=== PATIENT | female | born 1945 | race Caucasian/White ===

== ENCOUNTER → 2017-06-12 | Outpatient (CLI) | payer MEDICARE, BC | END | disposition home or self-care (01) | LOC: LAB 15:19 | PROVIDERS: ATTEND Internal Medicine Hematology & Oncology | DX: Z51.11 Encounter for antineoplastic chemotherapy (principal); C90.02 Multiple myeloma in relapse; C79.51 Secondary malignant neoplasm of bone | CPT/HCPCS: 36415; 86850; 86900 ==

== ENCOUNTER → 2019-04-04 | Outpatient (CLI) | payer MEDICARE, BC | END | disposition home or self-care (01) | LOC: PETCFH 10:05 | PROVIDERS: ATTEND Internal Medicine Hematology & Oncology | DX: C90.02 Multiple myeloma in relapse (principal); D73.89 Other diseases of spleen | CPT/HCPCS: 78815; A9552 ==

== ENCOUNTER → 2019-07-24 | Outpatient (CLI) | payer MEDICARE, BC ==
[~2019-07-24] MED LIST: REGADENOSON 0.4 MG/5 ML SYRINGE ONE
== END | disposition home or self-care (01) ==
LOC: CFH 07:12
PROVIDERS: ATTEND Internal Medicine Cardiovascular Disease
DX: I08.1 Rheumatic disorders of both mitral and tricuspid valves (principal); I48.91 Unspecified atrial fibrillation; I10 Essential (primary) hypertension
CPT/HCPCS: 78452; 93017; 93306; A9502; J2785

== ENCOUNTER 2020-04-07 10:56 | Day surgery (SDC) | payer MEDICARE, BC ==
[~2020-04-07] VITALS: Ht 160 cm; Wt 78.6 kg
[2020-04-07 11:41] VITALS: BP 172/74
[2020-04-07] MEDS ORDERED: CEFAZOLIN PMX 1GM/50ML 50 ML ONE (11:47)
[2020-04-07] MEDS ORDERED: CITRACAL PO (11:59)
[2020-04-07] MEDS ORDERED: FAMO-79 PO (11:59)
[2020-04-07] MEDS ORDERED: [UNRECOGNIZED DRUG - OTHER] PO (11:59)
[2020-04-07] MEDS ORDERED: DIPH25CA61 PO (11:59)
[2020-04-07] MEDS ORDERED: CETI10CA PO (11:59)
[2020-04-07] MEDS ORDERED: BEPO10DR3 EACHEYE (11:59)
[2020-04-07] MEDS ORDERED: ASPI-1027 PO (11:59)
[2020-04-07] MEDS ORDERED: ACYC-114 PO (11:59)
[2020-04-07] MEDS ORDERED: DEXAMETHASONE PO (11:59)
[2020-04-07] MEDS ORDERED: SITA100T PO (11:59)
[2020-04-07] MEDS ORDERED: GABA800T5 PO (11:59)
[2020-04-07] MEDS ORDERED: VIT B12 PO (11:59)
[2020-04-07] MEDS ORDERED: PROBIOTIC PO (11:59)
[2020-04-07] MEDS ORDERED: ZOMETA (11:59)
[2020-04-07] MEDS ORDERED: OMEP-110 PO (11:59)
[2020-04-07] MEDS ORDERED: ATOR20TA37 PO (11:59)
[2020-04-07] MEDS ORDERED: NINLARO PO (11:59)
[2020-04-07] MEDS ORDERED: ACET325T14 PO (11:59)
[2020-04-07] MEDS ORDERED: POMA2CAP PO (11:59)
[2020-04-07] MEDS ORDERED: SODIUM CHLORIDE 0.9% 1,000 ML IV SCH (12:00)
[2020-04-07] MEDS ORDERED: CEFAZOLIN PMX 1GM/50ML 50 ML IV ONE (12:00)
[2020-04-07] MEDS ORDERED: LIDOCAINE 1%, 20ML ONE (13:48)
[2020-04-07] MEDS ORDERED: LIDOCAINE 1%, 10ML ONE (13:48)
[2020-04-07] MEDS ORDERED: MIDAZOLAM 1 MG/ML, 5ML ONE (13:58)
[2020-04-07] MEDS ORDERED: FENTANYL PF 100 MCG/2ML ONE (13:58)
[2020-04-07] MEDS ORDERED: FLUMAZENIL 0.1 MG/1 ML, 5ML ONE (13:58)
[2020-04-07] MEDS ORDERED: NALOXONE 1 MG/ML, 2ML ONE (13:58)
== END 2020-04-07 16:20 | disposition home or self-care (01) ==
LOC: OUT 10:56
PROVIDERS: ATTEND Internal Medicine Hematology & Oncology
DX: C90.02 Multiple myeloma in relapse (principal); C79.51 Secondary malignant neoplasm of bone; I10 Essential (primary) hypertension; E11.9 Type 2 diabetes mellitus without complications; Z79.82 Long term (current) use of aspirin; Z79.899 Other long term (current) drug therapy; Z88.8 Allergy status to other drugs, medicaments and biological substances
CPT/HCPCS: 36561; 76937; 77001; 99156; 99157; C1788; C1894; J0690; J1642; J2250; J3010; J7030; J2310